=== PATIENT | female | born 2005 | race African-American/Black ===

== ENCOUNTER 2024-06-21 18:44 | Emergency (ER) | payer MEDICAID ==
[~2024-06-21] VITALS: Ht 172.7 cm; Wt 65.0 kg
[2024-06-21 18:47] VITALS: BP 131/98; RESP 18; TEMP 98.5; O2SAT 100
[2024-06-21 19:05] VITALS: PULSE 125; O2SAT 96
== END 2024-06-21 22:38 | disposition left against medical advice (07) ==
LOC: ER 18:44
DX: S01.01XA Laceration without foreign body of scalp, initial encounter (principal); W22.09XA Striking against other stationary object, initial encounter; X58.XXXA Exposure to other specified factors, initial encounter; Y93.89 Activity, other specified; Y92.89 Other specified places as the place of occurrence of the external cause; Y99.8 Other external cause status
CPT/HCPCS: 12001; 99282